=== PATIENT | male | born 1960 | race Caucasian/White ===

== ENCOUNTER 2018-10-05 14:27 | Emergency (ER) | payer OTHER, SELFPAY ==
[2018-10-05] VITALS (8 sets, daily range): BP systolic 120–150; BP diastolic 66–79; PULSE 71–100; RESP 13–19; TEMP 36.7–36.9; O2SAT 96–99
--- NOTE | 2018-10-05 15:01 | ED.GENADUL_ITS ---
Discharge Plan Disposition Patient Disposition: HOME Condition: Fair Discharge Details Chief Complaint: Dizzy/Sync Clinical Impression: Episodic lightheadedness, Palpitations Primary Care Provider: Felicita,Local ED Provider: Cathy Tate Home Meds and New Rx's Prescriptions: Continued amlodipine 2.5 mg Tablet 2.5 mg PO DAILY RF: 0 Discharge Instructions Instructions: Palpitations (ED), Lightheadedness (ED) Additional Instructions: Please encourage hydration. Please contact your primary care as soon as possible to set up an appointment next week for reevaluation. You will likely need evaluation with a film processor. Please avoid exertional activities. If you develop chest pain, shortness of breath, feel like you are going to pass out or other other new/worsening symptoms please seek care urgently once again. Discharge Data Discharge Date/Time-TO BE ENTERED AT DEPARTURE: 10/05/18 17:08 Medical Decision Making <Emile Nur NP - Last Filed: 10/07/18 14:26> Patient presenting to the emergency department for chief complaint of dizziness. 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 Patient states that he had feeling of palpitations and diaphoresis when it happened but as soon as he rested the racing heart rate seemed to diminish. This happened again today while he was again performing strenuous activity so he came into the emergency department. Patient denies any pain or discomfort, nausea or vomiting but does state mild soft loose stool yesterday, denies chest pain, headache, or other focal neurological findings. Physical exam is unremarkable, negative hints exam, no [place] with latera lization, normal neurological exam, normal cardiac exam, clear lung sounds. Plan to check labs but given no other specific findings do not feel that imaging is required at this time. More suspicious of dehydration to possible cardiac dysrhythmia. EKG was performed and reviewed with attending physician and shows normal sinus rhythm, rate of 89, no acute STEMI, otherwise nondiagnostic EKG. Pending labs patient given IV fluids to see if this helps with his symptoms. <CALDERON Bardales - Last Filed: 10/05/18 22:52> Care was transitioned to myself from Emile Nur NP, with labs pending. Patient reports that he is feeling improved at this time, is not having chest pain palpitations. Reviewed his history. Patient reported that yesterday the symptoms are much more severe than today. At that time, after working out in the ER for several hours, he was walking back up a steep incline with lightheaded. States that his heart was racing denies any chest pain shortness of breath. Has not had symptoms like this historically. Patient has been working outside and exerting himself for the past week and has not had episodes like this previously. His does note that he seemed to be dehydrated and did not have much fluid intake of the course of the day. Today, he was getting herself in the yard when she had another similar such episode but less severe. Again, the patient denies any chest pain or shortness of breath. Did not have any vertigo-like symptoms. No known trauma. Patient feeling improved after fluids. Labs reviewed with the patient. No acute abnormalities noted at this time. Patient lives in [facility], prefers to follow-up with primary care. I did discuss with him placing him on a Holter monitor but he will follow-up with primary care to discuss this further. Because he is ready for discharge at this time. I advised that he try to avoid any physical activities. In particular, advised against kayaking which the patient was talking about as I am concerned he may have these lightheaded episodes while on the water. He was given strict return precautions, is staying locally and is able to return should these occur. Encourage hydration. All the questions and concerns were addressed and he is agreement with this plan. HPI <Emile Nur NP - Last Filed: 10/07/18 14:26> General Mode of arrival: ambulatory . Date/Time Provider Initiated Documentation: 10/05/18 14:28 . Limitations to Documentation: no limitations . Information obtained by: patient . History of Present Illness 57 year old M presents to the emergency department with the chief complaint of Lightheadedness, near syncope, Quality is described as other (Denies pain or discomfort), Patient started experiencing this day(s) (1) and it has been intermittent. Rest improves symptom(s), Other factors that worsen symptoms (Strenuous activity) . Patient did receive the following treatments prior to arrival, none Related Data Home Medications Medication Instructions Recorded Confirmed amlodipine 2.5 mg PO DAILY 10/05/18 10/05/18 Allergies Allergy/AdvReac Type Severity Reaction Status Date / Time Penicillins AdvReac Unknown as a Unverified 10/05/18 14:48 child General Stated Complaint: Dizzy/Sync JUAN MIGUEL: 3 Review of Systems <Emile Nur NP - Last Filed: 10/07/18 14:26> Constitutional Denies chills, Denies fever(s) and Denies malaise Cardiovascular Reports as per HPI, Denies chest pain, Denies chest pain with activity, Reports diaphoresis, Denies syncope, Reports rapid heart rate, Denies irregular heart rhythm, Reports palpitations and Denies dyspnea Respiratory Denies cough, Denies hemoptysis and Denies dyspnea Gastrointestinal Denies abdominal pain, Reports diarrhea, Denies nausea and Denies vomiting Neurologic Denies syncope Psychiatric Reports anxiety (mild) Endocrine Reports palpitations PFSH <Emile Nur NP - Last Filed: 10/07/18 14:26> Medical History Hypertension (Chronic) Prostate cancer (Chronic) Exam <Emile Nur NP - Last Filed: 10/07/18 14:26> Const General: cooperative, healthy appearing, comfortable, no acute distress, not diaphoretic and not ill appearing Nutritional Appearance: average body habitus Orientation: alert, awake and oriented x3 Limitations: mental status not altered Neck Neck: normal visual inspection, full ROM, trachea midline, supple and no anterior neck swelling Chest Chest: normal inspection of the chest Resp Effort & Inspection: normal respiratory effort and able to speak in complete sentences Auscultation: clear to auscultation bilaterally Cardio Jugular venous pressure: no JVD Palpation: normal PMI Rate: regular rate Rhythm: regular rhythm Heart Sounds: S1 normal, S2 normal, no click, no gallops, no murmurs and no rubs Bruits: no abdominal aortic bruits and no carotid bruits Pulses: radial pulses present bilaterally 2+ GI Inspection: normal to inspection Palpation: soft, no aortic enlargement, no pulsatile masses and nontender Auscultation: normal bowel sounds Neuro General: alert, awake, oriented x3, gait normal, tone normal, moves all extremities, no meningeal signs, no focal motor deficits, CN's II-XI intact bilaterally, not confused, [place] (No findings noted) and other (Nondiagnostic hints exam) Cognition: normal cognition Speech: speech normal Course <Emile Nur NP - Last Filed: 10/07/18 14:26> Vital Signs Temperature 36.7 C 10/05/18 14:36 Pulse 100 H 10/05/18 14:36 Respiratory Rate 16 10/05/18 14:36 Blood Pressure 150/73 H 10/05/18 14:36 Pulse Oximetry 99 10/05/18 14:36 Temperature 36.7 C 10/05/18 14:36 Temperature Source Skin 10/05/18 14:36 Pulse 100 H 10/05/18 14:36 Respiratory Rate 15 10/05/18 14:46 Respiratory Effort 10/05/18 14:50 Respiratory Depth Normal 10/05/18 14:46 Respiratory Pattern Normal 10/05/18 14:46 Blood Pressure 150/73 H 10/05/18 14:36 Pulse Oximetry 99 10/05/18 14:36 Oxygen Delivery Method Room Air 10/05/18 14:36 Oxygen Flow Rate 0 10/05/18 14:36 Pain Level 0 10/05/18 14:36
[2018-10-05 15:19] LABS: Abs Immature Grans 0.01 k/cumm (0.0-0.09); Absolute Basophil Count 0.04 k/cumm (0.0-0.2); Absolute Eosinophil Count 0.18 k/cumm (0.0-0.7); Absolute Lymphocyte Count 2.98 k/cumm (1.2-3.4); Absolute Monocyte Count 0.55 k/cumm (0.11-0.7); Absolute Neutrophil Count 3.03 k/cumm (1.2-6.7); Basophils % 0.6; Eosinophils % 2.7; HCT 42.4 % (40.0-50.0); HGB 14.6 g/dL (13.5-17.5); Immature Grans % 0.1; Lymphocytes % 43.9; Mean Corp. HGB Concentration 34.4 g/dL (32.0-36.0); Mean Corpuscular Hemoglobin 31.9 pg (27.0-33.0); Mean Corpuscular Volume 92.6 fL (80-95); Monocytes % 8.1; Neutrophils % 44.6; Platelet Count 264 x1000/uL (130-400); RBC 4.58 m/cumm (4.50-6.00); RBC Distribution Width 12.5 % (11.8-14.1); White Blood Cell Count 6.79 k/cumm (4.4-10.8)
[2018-10-05 15:26] LABS: Bilirubin Negative (Negative); Blood Negative (Negative); Clarity Clear (Clear); Glucose Negative (Negative); Ketones Negative (Negative); Leukocyte Esterase Negative (Negative); Nitrite Negative (Negative); Specific Gravity 1.025 (1.005-1.025); Urobilinogen 0.2 EU/dL (Up TO 0.2)
[2018-10-05] MEDS: Normal Saline 1,000 ML 1000 ML IV (15:50)
[2018-10-05 15:55] LABS: ALT 31 U/L (12-78); AST 21 U/L (15-37); Albumin 3.8 g/dL (3.4-5.0); Alkaline Phosphatase 55 U/L (46-116); Anion Gap 6.3 mmol/L (3-11); BUN 18 mg/dL (7-18); Bilirubin, Total 0.3 mg/dL (0.2-1.0); CO2 29.7 mmol/L (21.0-32.0); CREATININE 1.07 mg/dL (0.70-1.30); Chloride 104 mmol/L (98-107); Glucose 120 mg/dL (70-100); Sodium 140 mmol/L (136-145); Total Protein 7.2 g/dL (6.4-8.2)
[2018-10-05 15:56] LABS: Troponin I < 0.05 ng/mL (0.00-0.06)
[2018-10-05] MEDS: Normal Saline Flush 10 ML SYR IVP (15:58)
== END 2018-10-05 17:08 | disposition home or self-care (01) ==
PROVIDERS: Nurse Practitioner Family; Emergency Provider Physician Assistant
DX: R42 Dizziness and giddiness (principal); R00.2 Palpitations
CPT/HCPCS: 36415; 80053; 93005; 96360; 99284; 81003; 83735; 84443; 84484; 85025; 93010

== ENCOUNTER 2019-09-26 17:00 | Emergency (ER) | payer OTHER, SELFPAY ==
[2019-09-26] VITALS (40 sets, daily range): BP systolic 111–172; BP diastolic 61–98; PULSE 95–127; RESP 14–25; TEMP 36.4; O2SAT 92–100
--- NOTE | 2019-09-26 17:00 | RT.EKG_ITS ---
APPROVED REPORT Exam: Resting ECG Patient Location: E HR:114 bpm ECG Measurements Heart Rate 114 AXIS NE 155 P 56 QRSd 87 QRS 74 QT 323 T -65 QTc 446 <Conclusion> Sinus tachycardia...rate> 99 Probable left atrial enlargement...P >50mS, <-0.10mV V1 Nonspecific repol abnormality, diffuse leads...ST dep, T flat/neg, ant/lat/inf Less than 1mm ST depression in I, II, III, aVF, V4-6. No acute ST elevation.
--- NOTE | 2019-09-26 17:17 | ED.GENADUL_ITS ---
Discharge Plan Disposition Patient Disposition: HOME Condition: Improving Discharge Details Chief Complaint: Palpitatns Clinical Impression: Dehydration, Dizziness, Anxiety Primary Care Provider: Felicita,Local ED Provider: Aleyda Gannon Home Meds and New Rx's Prescriptions: Continued amlodipine 2.5 mg Tablet 2.5 mg PO DAILY RF: 0 atorvastatin 20 mg tablet 20 mg PO DAILY RF: 0 Discharge Instructions Instructions: Dehydration (ED), Dizziness (ED), Anxiety (ED) Additional Instructions: Drink plenty of fluids and get plenty of rest. Alternate tylenol and motrin as needed and directed for pain. Take Ativan as needed and directed for any feelings of anxiety or difficulty with sleep. Follow-up with your primary care doctor in 1 week. Return to the emergency department with any worsening or new concerning symptoms. Discharge Data Discharge Physician: Aleyda Gannon Medical Decision Making 1724 -- 58-year-old male with a history of hypertension, prostate cancer and anxiety who presents for dizziness and palpitations that started while standing talking to a neighbor at home prior to arrival. EKG noted a rate of 114, sinus with less than [address] depression in 1, 2, 3, aVF and V4 through V6 which is seen in previous EKG but no acute ST elevation. Heart rate 120s on evaluation. Patient appears very anxious. Differential diagnosis includes dehydration, anxiety, electrolyte abnormality, arrhythmia. Presentation not consistent with PE or ACS, but will obtain a cardiac work-up including d-dimer, and give fluids and Ativan and reassess. 1930 --labs and imaging reviewed and unremarkable. Potassium 3.3, magnesium 1.7, both repleted. Troponin negative. D-dimer negative. Chest x-ray negative. Repeat EKG noted near resolution of ST depression in V4 through V5, and same baseline less than [address] depression in 2, 3, aVF and V6 and which was seen in EKG 2019. Heart rate 90s. Patient was able to ambulate and denied any symptoms and feels good to go home. Patient was advised to push fluids. He was sent with a few t abs of Ativan to help with anxiety. Advised to follow up with the primary care doctor for re-evaluation. Usual and customary return precautions given prior to discharge. Medical Records Medical records reviewed: Yes I reviewed the patient's medical records. Lab Data Lab results reviewed: Yes I reviewed the patient's lab results. ECG Data Attestation: I personally reviewed and interpreted this ECG (s) as follows: Interpretation: #1 --Rate of 114, sinus, less than [address] depression in 1, 2, 3, aVF, V4 through V6 which is seen in previous EKG. T wave inversion in lead III seen in previous EKG. No acute ST elevation. MD 155. QRS 87. QTc 446. #2 --Rate of 80, sinus with rate variation. Resolution of ST depression in V4 through V5 with baseline less than [address] depression in 2, 3, aVF and V6 which was seen in EKG 2019. No acute ST elevation. MD 145. QRS 82. QTc 406. HPI General Mode of arrival: ambulatory . Date/Time Provider Initiated Documentation: 09/26/19 17:07 . Limitations to Documentation: no limitations . Information obtained by: patient . HPI Narrative: Pt is a 58yo M w/ a h/o HTN and prostate cancer who presents for feelings of dizziness and palpitations that started while standing talking to a neighbor outside today. He states he went inside his house and sat down and had a shot of bourbon what he thought were feelings of anxiety but this did not help. Patient does admit to some nausea earlier but denies any at present. Patient states he drinks 6 cups of coffee today but has not drank any water. He traveled here from [place] 1 week ago. He denies any recent illness, headache, chest pain, shortness of breath, leg pain or swelling, cough, nausea, vomiting, diarrhea or urinary symptoms. Related Data Home Medications Medication Instructions Recorded Confirmed amlodipine 2.5 mg PO DAILY 10/05/18 09/26/19 atorvastatin 20 mg PO DAILY 09/26/19 09/26/19 Allergies Allergy/AdvReac Type Severity Reaction Status Date / Time Penicillins AdvReac Unknown as a Unverified 09/26/19 17:17 child General Stated Complaint: Palpitatns JUAN MIGUEL: 2 Review of Systems All systems reviewed & are unremarkable except as noted in HPI and below Constitutional Constitutional: Reports as per HPI, Denies chills and Denies fever(s) Eyes Eyes: Denies blurry vision ENT Ears, Nose, Mouth, and Throat: Reports dizziness, Denies sore throat and Denies throat swelling Cardiovascular Cardiovascular: Denies chest pain, Reports rapid heart rate, Reports lightheadedness and Denies dyspnea Respiratory Respiratory: Denies cough and Denies dyspnea Gastrointestinal Gastrointestinal: Denies abdominal pain, Denies diarrhea and Denies vomiting Genitourinary Genitourinary: Denies hematuria and Denies dysuria Musculoskeletal Musculoskeletal: Denies back pain and Denies numbness Integumentary/Breasts Skin/Breast: Denies lesions and Denies rash Neurologic Neurologic: Reports dizziness, Denies localized weakness and Denies numbness Allergic/Immunologic Allergic/Immunologic: Denies throat swelling [facility] Medical History (Updated 09/26/19 @ 19:45 by Aleyda Gannon DO) Hypertension (Chronic) Prostate cancer (Chronic) Surgical History (Updated 09/26/19 @ 19:03 by Aleyda Gannon DO) No significant past surgical history (Acute) Social History (Updated 09/26/19 @ 19:04 by Aleyda Gannon DO) Smoking/Tobacco Use Status: Current every day Tobacco Type: e-cigarettes Alcohol Intake: current Alcohol Intake frequency: a few times a month Substance use type: does not use Exam Const General: cooperative, healthy appearing and no acute distress HENMT Head: normal to inspection Ears: hearing grossly normal bilaterally and external ears normal Face and sinus: normal facial exam Mouth: oral mucosae normal Throat: posterior oropharynx normal Eyes General: appearance normal, both eyes and all related structures Pupils: PERRL EOM: EOM intact bilaterally Neck Neck: normal visual inspection and No submandibular swelling Lymphatic: no lymphadenopathy noted Chest Chest: normal inspection of the chest and no tenderness Resp Effort & Inspection: normal respiratory effort and able to speak in complete sentences Auscultation: clear to auscultation bilaterally Cardio Rate: tachycardic Rhythm: regular rhythm GI Inspection: normal to inspection Palpation: soft, not firm, not rigid and nontender Auscultation: normal bowel sounds Skin General skin exam: no rashes or lesions noted Neuro General: patient alert, patient awake and patient oriented x3 Cognition: normal cognition Speech: speech normal Motor: muscle tone normal throughout Sensory Exam: no sensory deficits noted Extrem General: normal to inspection, full ROM, capillary refill normal, no calf tenderness bilaterally and no edema Psych Appearance: grossly normal Mental Status: mental status grossly normal Speech and Movement: speech and movement normal Affect: normal affect Course Vital Signs Vital signs: Vital Signs Temperature 97.5 F L 09/26/19 17:13 Pulse 112 H 09/26/19 17:13 Respiratory Rate 17 09/26/19 17:13 Blood Pressure 172/89 H 09/26/19 17:13 Pulse Oximetry 98 09/26/19 17:13 Temperature 97.5 F L 09/26/19 17:13 Temperature Source Skin 09/26/19 17:13 Pulse 112 H 09/26/19 17:13 Respiratory Rate 17 09/26/19 17:13 Respiratory Effort Non-Labored 09/26/19 17:13 Blood Pressure 172/89 H 09/26/19 17:13 Blood Pressure Position Sitting 09/26/19 17:13 Pulse Oximetry 98 09/26/19 17:13 Oxygen Delivery Method Room Air 09/26/19 17:13 Oxygen Flow Rate 0 09/26/19 17:13 Pain Level 0 09/26/19 17:13
[2019-09-26] MEDS: Normal Saline Flush 10 ML SYR IVP (17:30)
[2019-09-26 17:41] LABS: Abs Immature Grans 0.03 k/cumm (0.0-0.09); Absolute Basophil Count 0.01 k/cumm (0.0-0.2); Absolute Eosinophil Count 0.05 k/cumm (0.0-0.7); Absolute Lymphocyte Count 1.52 k/cumm (1.2-3.4); Absolute Monocyte Count 0.57 k/cumm (0.11-0.7); Absolute Neutrophil Count 8.48 k/cumm (1.2-6.7); Basophils % 0.1; Eosinophils % 0.5; HCT 44.4 % (40.0-50.0); HGB 15.5 g/dL (13.5-17.5); Immature Grans % 0.3 %; Lymphocytes % 14.3; Mean Corp. HGB Concentration 34.9 g/dL (32.0-36.0); Mean Corpuscular Hemoglobin 31.6 pg (27.0-33.0); Mean Corpuscular Volume 90.4 fL (80-95); Mean Platelet Volume 9.9 fL (8.0-11.0); Monocytes % 5.3; Neutrophils % 79.5; Platelet Count 299 x1000/uL (130-400); RBC 4.91 m/cumm (4.50-6.00); RBC Distribution Width 12.7 % (11.8-14.1); White Blood Cell Count 10.66 k/cumm (4.4-10.8)
[2019-09-26 17:56] LABS: ALT 42 U/L (16-63); AST 22 U/L (15-37); Alkaline Phosphatase 70 U/L (46-116); Anion Gap 9.8 mmol/L (3-11); BUN 19 mg/dL (7-18); Bilirubin, Total 0.5 mg/dL (0.2-1.0); CO2 28.2 mmol/L (21.0-32.0); CREATININE 1.35 mg/dL (0.70-1.30); Calcium 8.7 mg/dL (8.5-10.1); Chloride 99 mmol/L (98-107); Estimated GFR 53.91 (mL/min/1.73m2); Glucose 179 mg/dL (74-106); Magnesium 1.7 mg/dL (1.8-2.4); Potassium 3.3 mmol/L (3.5-5.1); Sodium 137 mmol/L (136-145); Total Protein 7.5 g/dL (6.4-8.2)
[2019-09-26 17:57] LABS: Troponin I < 0.05 ng/mL (<0.06)
[2019-09-26] MEDS: LORazepam 2 MG/ML VIAL 0.5 MG IVP (18:10)
[2019-09-26] MEDS: Normal Saline 1,000 ML 1000 ML IV ×2 (18:12→19:26)
[2019-09-26 18:46] LABS: D-Dimer 193 ng/mlFEU (<500)
--- NOTE | 2019-09-26 19:15 | DI.RAD_ITS ---
EXAM: XR PORTABLE CHEST AP CLINICAL HISTORY: palpitations, dizziness, r/o acute disease. TECHNIQUE: 2D digital imaging was performed. COMPARISON: No exams were available for comparison FINDINGS: LUNGS: Clear. No pleural abnormality seen. HEART: Normal. MEDIASTINUM: Normal. OTHER FINDINGS: None. IMPRESSION: No acute pulmonary findings. DATA REPOSITORY: RADIATION DOSE DELIVERED:
[2019-09-26] MEDS: Potassium Chloride 20 MEQ TABCR 40 MEQ PO (19:26)
[2019-09-26] MEDS: Magnesium Oxide 400 MG TAB PO (19:26)
--- NOTE | 2019-09-26 19:43 | DI.VRAD_ITS ---
PROCEDURE INFORMATION: Exam: XR Chest, 1 View Exam date and time: 09/26/2019 7:29 PM Age: 58 years old Clinical indication: Other: Palpitations, dizziness, R/O acute disease TECHNIQUE: Imaging protocol: XR of the chest Views: 1 view. COMPARISON: No relevant prior studies available. FINDINGS: Lungs: Clear lungs. Pleural space: No pneumothorax. No sizable pleural effusion. Heart/Mediastinum: No cardiomegaly. Bones/joints: Unremarkable. IMPRESSION: Clear lungs. Dictated and Authenticated by: Roscoe Marquez MD. Ordering:KYLER Maynard MD
--- NOTE | 2019-09-26 20:00 | RT.EKG_ITS ---
APPROVED REPORT Exam: Resting ECG Patient Location: E HR:80 bpm ECG Measurements Heart Rate 80 AXIS ND 145 P 60 QRSd 82 QRS 71 QT 351 T 17 QTc 406 <Conclusion> Sinus arrhythmia...V-rate 61-103, variation>10% Atrial premature complex...SV complex w/ short R-R interval Probable left atrial enlargement...P >50mS, <-0.10mV V1
[2019-09-26] MEDS: LORazepam 0.5 MG TAB 2 MG PO (20:39)
== END 2019-09-26 20:43 | disposition home or self-care (01) ==
PROVIDERS: Emergency Provider Physician Assistant
DX: E86.0 Dehydration (principal); R42 Dizziness and giddiness; F41.9 Anxiety disorder, unspecified; I10 Essential (primary) hypertension; E87.6 Hypokalemia; E83.42 Hypomagnesemia
CPT/HCPCS: 36415; 80053; 93005; 96361; 96374; 99285; 71045; 83735; 84484; 85025; 85379; 93010; J2060